=== PATIENT | female | born 1950 | race Hispanic/Latino ===

== ENCOUNTER 2017-04-08 08:36 | Day surgery (SDC) | payer MEDICARE, OTHER ==
[2017-04-08] MEDS ORDERED: Lactated Ringer's 500 ML IV ONE (09:14)
[2017-04-08] MEDS ORDERED: Propofol 10 mg/ml Inj (20 ML) ONE (10:10)
[2017-04-08 11:14] VITALS: BP 142/66; PULSE 50; RESP 13; TEMP 96.9; O2SAT 99
== END 2017-04-08 11:23 | disposition home or self-care (01) ==
LOC: H.ENDO 08:36
PROVIDERS: ATTEND Internal Medicine Gastroenterology
DX: K30 Functional dyspepsia (principal); K29.50 Unspecified chronic gastritis without bleeding; K57.30 Diverticulosis of large intestine without perforation or abscess without bleeding
CPT/HCPCS: 43239; 88305; J2001; J2704; J7120

== ENCOUNTER 2017-05-02 13:00 | Emergency (ER) | payer MEDICARE, OTHER ==
[2017-05-02 13:10] VITALS: BP 132/82; PULSE 86; RESP 16; TEMP 97; O2SAT 100
--- NOTE | 2017-05-02 13:40 | ED PDOC ---
HPI: Abdomen Time Seen by Provider: 05/02/17 13:16 Chief Complaint (Nursing): Abdominal Pain Chief Complaint (Provider): Abdominal Pain History Per: Patient History/Exam Limitations: no limitations Onset/Duration Of Symptoms: Days (x7) Current Symptoms Are (Timing): Still Present Additional Complaint(s): Mary Kate Levin is a 67 year old female with a past medical history of GERD presenting to the ED for an evaluation of burning epigastric pain occurring for 1 week associated with nausea and diarrhea. She denies vomiting, fever, or bleeding. PMD: Tony Quinn MD Past Medical History Reviewed: Historical Data, Nursing Documentation, Vital Signs Vital Signs: Last Vital Signs Temp 97.0 F L 05/02/17 13:05 Pulse 86 05/02/17 13:05 Resp 16 05/02/17 13:05 BP 132/82 05/02/17 13:05 Pulse Ox 100 05/02/17 13:43 - Medical History PMH: GERD - Surgical History Surgical History: Endoscopy - Family History Family History: States: Unknown Family Hx - Home Medications Home Medications: Ambulatory Orders Medication Instructions Recorded Pantoprazole Sodium [Protonix] 40 mg PO DAILY #30 tablet. 05/02/17 - Allergies Allergies/Adverse Reactions: Allergies Allergy/AdvReac Type Severity Reaction Status Date / Time No Known Allergies Allergy Verified 05/02/17 13:05 Review of Systems ROS Statement: Except As Marked, All Systems Reviewed And Found Negative Constitutional: Negative for: Fever Gastrointestinal: Positive for: Nausea, Abdominal Pain (epigastric pain), Diarrhea. Negative for: Vomiting, Hematochezia, Hematemesis Physical Exam - Reviewed Nursing Documentation Reviewed: Yes Vital Signs Reviewed: Yes - Physical Exam Appears: Positive for: Non-toxic, No Acute Distress Head Exam: Positive for: ATRAUMATIC, NORMOCEPHALIC Cardiovascular/Chest: Positive for: Regular Rate, Rhythm, Chest Non Tender. Negative for: Murmur Respiratory: Positive for: Normal Breath Sounds (clear to auscultation bilaterally). Negative for: Respiratory Distress Gastrointestinal/Abdominal: Positive for: Soft, Tenderness (mild epigastric tenderness ) Extremity: Positive for: Normal ROM (full ROM) Neurologic/Psych: Positive for: Alert, Oriented (x3). Negative for: Motor/ Sensory Deficits - Laboratory Results Result Diagrams: 05/02/17 13:50 05/02/17 13:50 - ECG O2 Sat by Pulse Oximetry: 100 (RA) Pulse Ox Interpretation: Normal Medical Decision Making Medical Decision Making: Time: 13:16 Impression: Epigastric pain Plan: * ED EKG * CMP * CBC (with differential) * NS 0.9% 1,000 ml IV 100 mls/hr * Protonix ED Tab 40 mg PO * Reevaluation Scribe Attestation: Documented by Constance Valentine, acting as a scribe for Kevin Arenas MD. Provider Scribe Attestation: All medical record entries made by the Scribe were at my direction and personally dictated by me. I have reviewed the chart and agree that the record accurately reflects my personal performance of the history, physical exam, medical decision making, and the department course for this patient. I have also personally directed, reviewed, and agree with the discharge instructions and disposition. Disposition - Clinical Impression Clinical Impression: GERD (gastroesophageal reflux disease) - Patient ED Disposition Is Patient to be Admitted: No Counseled Patient/Family Regarding: Studies Performed, Diagnosis, Need For Followup, Rx Given - Disposition Referrals: Miguel Dykes MD, PhD [Staff Provider] - Disposition: Routine/Home Disposition Time: 15:33 Condition: FAIR Prescriptions: Pantoprazole Sodium [Protonix] 40 mg PO DAILY #30 tablet. Instructions: Gastroesophageal Reflux Disease (ED) Forms: [employer] ([place]uvian)
[2017-05-02 14:02] LABS: BASO % 0.5 % (0.0-2.0); EOS # 0.1 K/uL (0.0-0.7); EOS % 1.3 % (0.0-4.0); HEMATOCRIT 40.4 % (34.0-47.0); LYMPH # 2.7 K/uL (1.0-4.3); LYMPH % 31.8 % (20.0-40.0); MEAN CORPUSCULAR HEMOGLOBIN 30.6 pg (27.0-31.0); MEAN CORPUSCULAR HGB CONC 33.6 g/dL (33.0-37.0); MEAN PLATELET VOLUME 9.4 fl (7.2-11.7); MONO # 0.5 K/uL (0.0-0.8); MONO % 6.2 % (0.0-10.0); NEUT # 5.2 K/uL (1.8-7.0); NEUT % 60.2 % (50.0-75.0); NRBC % 0.1 % (0.0-0.0); RED CELL DISTRIBUTION WIDTH 13.7 % (11.5-14.5); WHITE BLOOD COUNT 8.6 K/uL (4.8-10.8)
[2017-05-02] MEDS: Pantoprazole 40 mg EC Tab PO STA (14:02)
[2017-05-02] MEDS ORDERED: Pantoprazole 40 mg EC Tab PO ONE (14:02)
[2017-05-02] MEDS: Sodium Chloride 0.9% 1,000 ML IV STA (14:03)
[2017-05-02 14:19] LABS: ALB/GLOB RATIO 1.3 (1.0-2.1); ALKALINE PHOSPHATASE 50 U/L (38-126); ALT/SGPT 173 U/L (9-52); AST/SGOT 62 U/L (14-36); BILIRUBIN,TOTAL 0.5 mg/dl (0.2-1.3); BLOOD UREA NITROGEN 22 mg/dl (7-17); CALCIUM 9.4 mg/dL (8.4-10.2); CARBON DIOXIDE 23 mmol/L (22-30); CHLORIDE 108 mmol/L (98-107); GFR AFRICAN-AMERICAN > 60; GLUCOSE,RANDOM 91 mg/dL (65-105); SODIUM 141 mmol/l (132-148); TOTAL PROTEIN 7.2 G/DL (6.3-8.2)
[2017-05-02 14:37] LABS: POTASSIUM 4.7 MMOL/L (3.6-5.0)
--- NOTE | 2017-05-02 15:41 | CARD ---
APPROVED REPORT EKG Measurement Heart [id number] <Conclusion> Normal sinus rhythm Possible Left atrial enlargement Borderline ECG
== END 2017-05-02 16:31 | disposition home or self-care (01) ==
LOC: H.ER 13:00
DX: K21.9 Gastro-esophageal reflux disease without esophagitis (principal)
CPT/HCPCS: 80053; 85025; 93005; 99282; J7040

== ENCOUNTER 2017-05-06 09:11 | Day surgery (SDC) | payer MEDICARE, OTHER ==
[2017-05-06 09:55] VITALS: BMI 29.1
[2017-05-06] MEDS ORDERED: Lactated Ringer's 500 ML IV ONE (09:58)
[2017-05-06] MEDS ORDERED: Propofol 10 mg/ml Inj (20 ML) ONE (10:37)
[2017-05-06] MEDS ORDERED: Lidocaine 2% MPF (5 ml) Inj ONE (10:38)
[2017-05-06 10:55] VITALS: O2SAT 99
[2017-05-06 11:21] VITALS: BP 124/63; PULSE 65; RESP 14; TEMP 97
== END 2017-05-06 11:30 | disposition home or self-care (01) ==
LOC: H.ENDO 09:11
PROVIDERS: ATTEND Internal Medicine Gastroenterology
DX: Z12.11 Encounter for screening for malignant neoplasm of colon (principal); K64.8 Other hemorrhoids; K57.30 Diverticulosis of large intestine without perforation or abscess without bleeding
CPT/HCPCS: 45378; J2704; J7120